=== PATIENT | male | born 1945 | race Caucasian/White ===

== ENCOUNTER 2017-03-06 16:49 | Emergency (ER) | payer MEDICARE, BC ==
[~2017-03-06] VITALS: Ht 172.7 cm; Wt 68.0 kg
[2017-03-06 16:55] VITALS: BP 118/58; PULSE 64; RESP 16; TEMP 98.3; O2SAT 99
--- NOTE | 2017-03-06 17:21 | PD ---
HPI Chief Complaint: General Weakness Time Seen by Provider: 17:04 Travel History International Travel<30 days: No Contact w/Intl Traveler<30days: No Traveled to known affect area: No History of Present Illness HPI This patient has significant Alzheimer's. He has minimal communication ability. His brings him in reporting that he's had generalized weakness and fatigue for the last 2 days. Symptoms severity is moderate. No alleviating factors. No fever or productive cough or vomiting or diarrhea. 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 It's hard for her to put into words but he just hasn't been his usual self. [facility] Social History Alcohol Use: No Tobacco Use: No Substance Use: No Allergies-Medications (Allergen,Severity, Reaction): Coded Allergies: Juan (Verified Allergy, Severe, confusion, 03/06/17) Reported Meds & Prescriptions Reported Meds & Active Scripts Active Reported Rivastigmine Patch (Rivastigmine) 9.5 mg/24 hr Patch 1 Patch T-DERMAL DAILY Vitamin B-12 (Cyanocobalamin) 1,000 Mcg Tab 1,000 Mcg PO DAILY Namenda (Memantine) 10 Mg Tab 10 Mg PO BID Calcium 600 with Vitamin D (Calcium Carbonate-Cholecalciferol) 600-400 mg-Unit Tab 1 Tab PO DAILY Multiple Vitamin 1 Tab 1 Tab PO DAILY Aspirin EC (Aspirin) 81 Mg Tabdr 81 Mg PO DAILY Metoprolol Succinate ER 24 HR (Metoprolol Succinate) 25 Mg Tab 25 Mg PO DAILY Pravastatin 20 Mg Tab 20 Mg PO DAILY Sertraline (Sertraline HCl) 100 Mg Tab 100 Mg PO DAILY Review of Systems General / Constitutional: No: Fever Eyes: No: Visual changes HENT: No: Headaches Cardiovascular: No: Chest Pain or Discomfort Respiratory: No: Shortness of Breath Gastrointestinal: No: Abdominal Pain Genitourinary: No: Dysuria Musculoskeletal: Positive: Weakness, No: Pain Skin: No Rash Neurologic: Positive: Weakness Psychiatric: No: Depression Endocrine: No: Polydipsia Hematologic/Lymphatic: No: Easy Bruising Physical Exam Narrative GENERAL: Well-nourished, well-developed patient in no apparent distress. SKIN: Focused skin assessment reveals no rash and nodules. Skin is Warm and dry. HEAD: Atraumatic. Normocephalic. EYES: Pupils equal and round. No scleral icterus. No injection or drainage. ENT: No nasal bleeding or discharge. Mucous membranes pink and moist. Throat clear NECK: Trachea midline. No JVD. No meningeal signs CARDIOVASCULAR: Regular rate and rhythm. No murmur appreciated. RESPIRATORY: No accessory muscle use. Clear to auscultation. Breath sounds equal bilaterally. GASTROINTESTINAL: Abdomen soft, non-tender, nondistended. Hepatic and splenic margins not palpable. MUSCULOSKELETAL: No obvious deformities. No clubbing. No cyanosis. No edema. NEUROLOGICAL: Awake and alert. No obvious cranial nerve deficits. Motor grossly within normal limits. Normal speech. PSYCHIATRIC: Appropriate mood and flat affect; insight and judgment reduced from Alzheimer's Data Data Last Documented VS Vital Signs Date Time Temp Pulse Resp B/P Pulse Ox O2 Delivery O2 Flow Rate FiO2 03/06/17 19:04 77 18 122/62 96 Room Air 03/06/17 16:55 98.3 Orders Complete Blood Count With Diff (03/06/17 17:17) Comprehensive Metabolic Panel (03/06/17 17:17) Urinalysis - C+S If Indicated (03/06/17 17:17) Iv Access Insert/Monitor (03/06/17 17:17) Cath For Specimen (03/06/17 17:17) Lipase (03/06/17 17:17) Labs Laboratory Tests Test 03/06/17 03/06/17 17:00 18:15 White Blood Count 7.3 TH/MM3 Red Blood Count 4.47 MIL/MM3 Hemoglobin 13.3 GM/DL Hematocrit 40.1 % Mean Corpuscular Volume 89.7 FL Mean Corpuscular Hemoglobin 29.8 PG Mean Corpuscular Hemoglobin 33.2 % Concent Red Cell Distribution Width 13.4 % Platelet Count 210 TH/MM3 Mean Platelet Volume 7.6 FL Neutrophils (%) (Auto) 69.3 % Lymphocytes (%) (Auto) 22.2 % Monocytes (%) (Auto) 6.8 % Eosinophils (%) (Auto) 1.3 % Basophils (%) (Auto) 0.4 % Neutrophils # (Auto) 5.1 TH/MM3 Lymphocytes # (Auto) 1.6 TH/MM3 Monocytes # (Auto) 0.5 TH/MM3 Eosinophils # (Auto) 0.1 TH/MM3 Basophils # (Auto) 0.0 TH/MM3 CBC Comment DIFF FINAL Differential Comment Sodium Level 142 MEQ/L Potassium Level 4.2 MEQ/L Chloride Level 105 MEQ/L Carbon Dioxide Level 27.3 MEQ/L Anion Gap 10 MEQ/L Blood Urea Nitrogen 22 MG/DL Creatinine 1.60 MG/DL Estimat Glomerular Filtration 43 ML/MIN Rate Random Glucose 194 MG/DL Calcium Level 9.1 MG/DL Total Bilirubin 0.3 MG/DL Aspartate Amino Transf 16 U/L (AST/SGOT) Alanine Aminotransferase 23 U/L (ALT/SGPT) Alkaline Phosphatase 92 U/L Total Protein 6.9 GM/DL Albumin 3.3 GM/DL Lipase 221 U/L Urine Collection Type CATH Urine Color YELLOW Urine Turbidity SLIGHT Urine pH 6.0 Urine Specific [place] 1.020 Urine Protein 30 mg/dL Urine Glucose (UA) 100 mg/dL Urine Ketones TRACE mg/dL Urine Occult Blood NEG Urine Nitrite NEG Urine Bilirubin NEG Urine Leukocyte Esterase NEG Urine RBC 0-3 /hpf Urine WBC 0-2 /hpf Urine Squamous Epithelial 0-5 /hpf Cells Urine Calcium Oxalate Crystals FEW /hpf Urine Bacteria OCC /hpf Urine Hyaline Casts 15-19 /lpf Urine Mucus MOD /lpf Microscopic Urinalysis Comment CATH-CULTURE IND MDM Medical Decision Making Medical Screen Exam Complete: Yes Emergency Medical Condition: Yes Medical Record Reviewed: Yes Differential Diagnosis UTI, electrolyte abnormality, exacerbation of Alzheimer's Narrative Course I have reviewed the patient's electronic medical record. IV placed CBC is normal Metabolic profile is normal LFTs are normal Lipase is normal Catheterized urine will be cultured but not suspicious for infection Patient's vital signs and exam and workup is negative I don't see any emergent indication for hospitalization Recommend primary care follow-up and return if worsen Diagnosis Primary Impression: Generalized weakness Additional Instructions: The patient was advised to follow up with their physician and return if they worsen. Med/Other Pt SpecificInfo: Other Disposition: 01 DISCHARGE HOME Condition: Stable Saud Cooper MD March 06, 2017 17:21
[2017-03-06 17:50] LABS: AUTOMATED NEUTROPHIL # 5.1 TH/MM3 (1.8-7.7); BASOPHIL % 0.4 % (0.0-2.0); EOSINOPHIL # 0.1 TH/MM3 (0-0.4); EOSINOPHIL % 1.3 % (0.0-4.0); HEMATOCRIT 40.1 % (39.0-51.0); HEMO FLAGS DIFF FINAL; LYMPH % 22.2 % (9.0-44.0); LYMPHOCYTE # 1.6 TH/MM3 (1.0-4.8); MEAN CELL VOLUME 89.7 FL (80.0-100.0); MEAN CORPUSCULAR HEMOGLOBIN 29.8 PG (27.0-34.0); MEAN CORPUSCULAR HGB CONC 33.2 % (32.0-36.0); MONO % 6.8 % (0.0-8.0); NEUT % 69.3 % (16.0-70.0); PLATELET COUNT 210 TH/MM3 (150-450); RED BLOOD COUNT 4.47 MIL/MM3 (4.50-5.90); RED CELL DISTRIBUTION WIDTH 13.4 % (11.6-17.2); WHITE BLOOD COUNT 7.3 TH/MM3 (4.0-11.0)
[2017-03-06 17:54] LABS: CHLORIDE 105 MEQ/L (98-107); POTASSIUM 4.2 MEQ/L (3.5-5.1); SODIUM (NA) 142 MEQ/L (136-145)
[2017-03-06 17:58] LABS: ANION GAP 10 MEQ/L (5-15); BICARBONATE 27.3 MEQ/L (21.0-32.0)
[2017-03-06 17:59] LABS: BLOOD UREA NITROGEN 22 MG/DL (7-18)
[2017-03-06 18:00] VITALS: BP 100/58; PULSE 72; RESP 16; O2SAT 99
[2017-03-06 18:01] LABS: ALT (GPT) 23 U/L (12-78); AST (GOT) 16 U/L (15-37)
[2017-03-06 18:02] LABS: GLOMERULAR FILTRATION RATE 43 ML/MIN (>89)
[2017-03-06 18:03] LABS: TOTAL BILIRUBIN ADULT 0.3 MG/DL (0.2-1.0)
[2017-03-06 18:04] LABS: ALKALINE PHOSPHATASE 92 U/L (45-117)
[2017-03-06] MEDS ORDERED: VITA100T15 PO (18:35)
[2017-03-06] MEDS ORDERED: NAME10TA PO (18:35)
[2017-03-06] MEDS ORDERED: PRAV20TA2 PO (18:35)
[2017-03-06] MEDS ORDERED: ASPI81TA11 PO (18:35)
[2017-03-06] MEDS ORDERED: CALC1TAB87 PO (18:35)
[2017-03-06] MEDS ORDERED: MULTTAB67 PO (18:35)
[2017-03-06] MEDS ORDERED: SERT-129 PO (18:35)
[2017-03-06] MEDS ORDERED: METO25TA6 PO (18:35)
[2017-03-06] MEDS ORDERED: RIVA1DIS2 T-DERMAL (18:36)
[2017-03-06] MEDS ORDERED: VITA10002 PO (18:36)
[2017-03-06 18:58] LABS: BLOOD, URINE NEG (NEG); GLUCOSE,URINE 100 mg/dL (NEG); KETONE, URINE TRACE mg/dL (NEG); NITRITE,URINE NEG (NEG)
[2017-03-06 19:00] LABS: HYALINE CAST, URINE 15-19 /lpf (RARE); METHOD OF COLLECTION CATH; MUCUS URINE MOD /lpf (OCC); URINE COLOR YELLOW (YELLW/STRAW)
[2017-03-06 19:01] LABS: CALCIUM OXALATE CRYSTALS,URINE FEW /hpf; RBC, URINE 0-3 /hpf (0-3); SQUAMOUS EPITHELIAL CELL URINE 0-5 /hpf (0-5); WBC, URINE 0-2 /hpf (0-5)
[2017-03-06 19:02] LABS: BACTERIA, URINE OCC /hpf
[2017-03-06 19:03] LABS: COMMENT (UR) CATH-CULTURE IND; CULTURE IF INDICATED CATH CULTURE IND
[2017-03-06 19:04] VITALS: BP 122/62; PULSE 77; RESP 18; O2SAT 96
== END 2017-03-06 19:32 | disposition home or self-care (01) ==
LOC: PHED 16:49
DX: R53.1 Weakness (principal); G30.9 Alzheimer's disease, unspecified; F02.80 Dementia in other diseases classified elsewhere, unspecified severity, without behavioral disturbance, psychotic disturbance, mood disturbance, and anxiety; Z93.3 Colostomy status
CPT/HCPCS: 80053; 81001; 83690; 85025; 87086; 99283; P9612